=== PATIENT | female | born 1930 | race Caucasian/White ===

== ENCOUNTER 2017-06-09 08:47 | Inpatient (IN) ==
[2017-06-09] MEDS ORDERED: CLINDAMYCIN INJ 600 MG in PREMIX 1 EACH IV STA (09:04)
[2017-06-09] MEDS ORDERED: SODIUM CHLORIDE 0.9% 1,000 ML IV STA ×2 (09:04→11:41)
[2017-06-09] MEDS ORDERED: CALCIUM GLUCONATE 1,000 MG in SODIUM CHLORIDE 0.9% 100 ML IV ONE (09:09)
[2017-06-09] MEDS ORDERED: ALBUTEROL NEB SOLN 5 MG/ML 20 ML/BOTTLE CONT NEB STA (09:09)
--- NOTE | 2017-06-09 09:12 | Emergency Department Note ---
Arrival - Arrival Chief Complaint: Non-Specific Stated Complaint: failure to thrive ED Nursing Triage Note: pt to er 09 via ems coming from [facility] with c/o having failure to thrive. pt has K+ 5.7, fever of 99.0, poor urine output, and swelling all over. Mode of Arrival: Stretcher Limitations: No Limitations Source: Old Records Reviewed Time Seen by Provider: 06/09/17 09:04 - History of Present Illness HPI Narrative: This 86-year-old white female senior care resident who is a DNR presents on referral from the senior care for hyperkalemia of 5.7, fever, and failure to thrive. The patient herself can give no history she is very demented and only oriented to person. However, she is alert and in no acute medical distress. Onset (ago): unknown Allergies/Adverse Reactions: Allergies Allergy/AdvReac Type Severity Reaction Status Date / Time Aminoglycosides Allergy Unknown/Unable Verified 06/09/17 09:38 to obtain Cephalosporins Allergy Unknown/Unable Verified 06/09/17 09:38 to obtain Macrolide Antibiotics Allergy Unknown/Unable Verified 06/09/17 09:38 to obtain Penicillins Allergy Unknown/Unable Verified 06/09/17 09:38 to obtain Sulfa (Sulfonamide Allergy Unknown/Unable Verified 06/09/17 09:38 Antibiotics) to obtain Tetracyclines Allergy Unknown/Unable Verified 06/09/17 09:38 to obtain FLUROQUINOLONES Allergy Unknown Uncoded 05/31/17 15:47 KETOLIDES Allergy Unknown Uncoded 05/31/17 15:47 fluroquinolones Allergy Unknown/Unable Uncoded 06/09/17 09:38 to obtain ketolides Allergy Unknown/Unable Uncoded 06/09/17 09:38 to obtain Home Medications: Home Medications Medication Instructions Recorded Confirmed Type Acetaminophen 2 tablet PO Q4HR PRN 05/31/17 06/09/17 History Atorvastatin Calcium 1 tablet PO DAILY 05/31/17 06/09/17 History Bisacodyl Supp [Dulcolax Supp] 10 mg RECTAL DAILY PRN 05/31/17 06/09/17 History Bumetanide 1 mg PO 1600 05/31/17 06/09/17 History Calcium (Carb)/Vit D 600-400 1 tablet PO DAILY 05/31/17 06/09/17 History [Caltrate 600 + D] Cholecalciferol (Vitamin D3) 2,000 mg PO DAILY 05/31/17 06/09/17 History [Vitamin D3] Clopidogrel Bisulfate [Clopidogrel] 75 mg PO DAILY 05/31/17 06/09/17 History Docusate Sodium 100 mg PO BID 05/31/17 06/09/17 History Donepezil HCl 5 mg PO BEDTIME 05/31/17 06/09/17 History FLUoxetine [PROzac] 10 mg PO BEDTIME 05/31/17 06/09/17 History Ferrous Sulfate 325 mg PO BID 05/31/17 06/09/17 History HYDROcodone/ACETAMIN 5-325 [[place] 1 tablet PO Q4H PRN 05/31/17 06/09/17 History 5-325] Hydralazine HCl 50 mg PO TID 05/31/17 06/09/17 History Magnesium Chloride [Slow Mag] 64 mg PO BID 05/31/17 06/09/17 History Niacin [Niacin ER] 500 mg PO DAILY 05/31/17 06/09/17 History Nitroglycerin [Nitroglycerin SL 0.4 mg SL Q5M PRN 05/31/17 06/09/17 History Tab] Ondansetron Tab [Zofran Tab] 4 mg PO Q12HR PRN 05/31/17 06/09/17 History Potassium Chloride 20 meq PO DAILY 05/31/17 06/09/17 History Trazodone HCl 25 mg PO BEDTIME 05/31/17 06/09/17 History clonazePAM TAB [KlonoPIN] 0.25 mg PO BID 05/31/17 06/09/17 History dilTIAZem HCl [Diltiazem ER (24 240 mg PO DAILY 05/31/17 06/09/17 History hr)] Gabapentin Cap/Tab [Neurontin 100 mg PO BID 06/09/17 06/09/17 History Cap/Tab] Zaleplon 5 mg PO BEDTIME PRN 06/09/17 06/09/17 History Zinc Oxide Paste [Desitin Paste] 1 applic TOP BID 06/09/17 06/09/17 History cloNIDine TAB [Catapres Tab] 0.1 mg PO Q6H PRN 06/09/17 06/09/17 History diphenhydrAMINE CAP [Benadryl Cap] 25 mg PO Q4H PRN 06/09/17 06/09/17 History Review of System - Review of System ROS unobtainable: due to mental status Medical,Surgical,& Family Hx - Social History Smoking Status: Never smoker Frequency of Alcohol Use: None Type of Drug Use: None Exam Physical Examination: GENERAL: Well developed, well nourished elderly white female in no acute distress. HEENT: Normocephalic. No trauma. Moist mucous membranes. EOMI. PERRLA. ENT NML NECK: Supple. No adenopathy. CARDIAC: Regular. No murmurs. Heart rate 115 CHEST: Clear to auscultation. No respiratory distress. O2 sat 90% ABDOMEN: Soft. Nontender. Active bowel sounds. EXTREMITIES: No trauma. Complains of pain on range of motion the right hip. No pedal edema. SKIN: No diaphoresis. No rash. NEURO: Alert but confused. Motor, sensory, vibratory intact. No focal deficits. Vital Signs: Vital Signs Temperature 98.7 F 06/09/17 08:51 Pulse Rate 111 H 06/09/17 09:43 Respiratory Rate 20 06/09/17 09:43 Blood Pressure 130/53 06/09/17 08:51 O2 Sat by Pulse Oximetry 98 06/09/17 09:43 Course - Reevaluation(s) Reevaluation #1: Advise family of her dehydrated state and need for rehydration overnight - Consultations Consultation #1: Discussed with the hospitalist service who will admit for further evaluation treatment. Results - Labs CBC & BMP: 06/09/17 10:25 06/09/17 10:25 - Impressions EKG: Paced at 97 with normal QRS duration. Right ventricular hypertrophy with old anterolateral infarct and evidence of persistent ST depression consistent with acute ischemia. - Diagnostic Findings Procedure: Chest x-ray: image reviewed by me, report reviewed by me (Increased markings otherwise unremarkable) Disposition Clinical Impression: Renal azotemia Case discussed with: patient's family Disposition: Still a Patient Condition: Guarded Time of Disposition: 12:15
--- NOTE | 2017-06-09 09:35 | XRay Report ---
XR chest 1V portable Indication: Shortness of breath, fever Comparison: None available Findings: The heart and mediastinum are stable in size and configuration. The pulmonary vascularity is slightly increased with bilateral increased interstitial lung density. No other lung infiltrates, effusions, pneumothorax or other abnormality is demonstrated. Impression: Findings suggest mild cardiac decompensation. PROCEDURE INTERPRETED AT [facility] DEPARTMENT OF RADIOLOGY Final Report Signed by: Dr. Kevin Mejía
--- NOTE | 2017-06-09 09:37 | XRay Report ---
XR hip 2v w pelvis RT Indication: Hip pain Comparison: None available Findings: No evidence of fracture seen. The alignment of the joints appears normal. Mild hip degenerative change is present. Degenerative changes are present in the lower lumbar spine. No soft tissue abnormality is seen. Impression: Mild hip osteoarthrosis. PROCEDURE INTERPRETED AT [facility] DEPARTMENT OF RADIOLOGY Final Report Signed by: Dr. Kevin Mejía
[2017-06-09 09:42] LABS: Amorphous Crystals,Urine Occasional /HPF (Few); Apearance,Urine Slightly Hazy (Clear); Bilirubin,Urine Negative (Negative); Blood, Urine Negative (Negative); Glucose,Urine (UA) Negative (Negative); Hyaline Casts,Urine 4 /LPF (0-3); Ketones,Urine Negative (Negative); Mucus,Urine Occasional /LPF (Occasional); Nitrite,Urine Negative (Negative); Protein,Urine 100 MG/DL; RBC,Urine 8 /HPF (0-4); Urine Color Yellow (Yellow); Urine Specific Gravity 1.014 (1.001-1.035); Urine Urobilinogen < 2.0 EU/DL (0.2-1.0); WBC,Urine 1 /HPF (0-6)
--- NOTE | 2017-06-09 09:51 | EKG Report ---
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
[2017-06-09 10:37] LABS: Basophils % 0.2 % (0.0-0.8); Eosinophils # 0.3 10*3/uL (0.0-0.87); Eosinophils % 3.2 % (0.00-10.9); Hematocrit 29.3 VOL% (35.7-47.0); Hemoglobin 8.7 GM/DL (12.0-16.0); Immature Granulocytes % 0.7 %; Immature Granulocytes Absolute 0.06 #; Lymphocytes # 1.8 10*3/uL (1.4-4.0); Lymphocytes % 19.4 % (21.3-54.2); Mean Corpuscular HGB Conc 29.7 GM/DL (32-36); Mean Corpuscular Hemoglobin 30 PG (27-34); Mean Corpuscular Volume 101.4 FL (87-102); Mean Platelet Volume 9.5 FL (9.6-12.0); Monocytes # 0.9 10*3/uL (0.11-0.8); Monocytes % 10.1 % (1.7-12.7); Neutrophils % 66.4 % (38.7-73.9); Platelet Count 201 T/CUMM (130-400); Red Blood Count 2.89 MC/CUMM (3.8-5.5); Red Cell Distribution Width 16.2 % (9.3-17.3)
[2017-06-09 10:46] LABS: INR 1.1; PT Patient Result 11.4 SECS
[2017-06-09] MEDS ORDERED: CLINDAMYCIN INJ 50 ML IV ONE (11:15)
[2017-06-09 11:24] LABS: Albumin 3.4 G/DL (3.4-5.0); Bilirubin,Total 0.6 MG/DL (0.2-1.0); CKMB % 1.4 %; Calcium 9.3 MG/DL (8.5-10.1); Osmolality,Calculated 287.7 MOS/KG (273-304); Potassium 5.8 MMOL/L (3.5-5.1); Total Protein 6.6 G/DL (6.4-8.3); Troponin I Only 0.025 NG/ML (0.00-0.045)
--- NOTE | 2017-06-09 15:30 | Hospitalist History & Physical ---
Assessment and Plan (1) Hyperkalemia Status: Acute Assessment and plan: K 5.8. [place] ordered. Recheck in am. Current Visit: Yes (2) A-fib Status: Acute Assessment and plan: Cardiac monitoring. Restart home meds. Anticoagulate. Current Visit: No (3) Hypertension Status: Acute Assessment and plan: Restart home meds. Pt. stable at current. Current Visit: No (4) Major depression Status: Acute Current Visit: No (5) Renal failure Status: Acute Assessment and plan: Pt. only has one kidney per daughter. She is at her baseline. Avoid nephrotoxic agents. Daily bmps. Current Visit: Yes History of Present Illness Chief complaint: hyperkalemia/fever History of present illness: Ms. Patiño is a 86 year old white female with a history of GERD, hypertension, afib, anemia, dementia, osteoarthritis, depression and anxiety presented to the ED via EMS from a [facility] for further evaluation of hyperkalemia and fever. Patient has dementia and is only oriented to self and was therefore unable to provide any history. Patient's daughter is present at the bedside. She states she was notified by the [facility] facility that patient has elevated potassium. Pt.'s daughter reported that the patient has had a steady decline since her hip fracture in Apr 2016. Pt. was evaluated in the ED. CXR showed mild cardiac decompensation. Remarkable labs reveal K of 5.8, bun/creatinine 42/ 3 respectively, and ck mb of 9.5. Pt's case has been discussed with Dr. Rodrigues and ER physician. Pt. will be admitted to our service. Home Medications Medication Instructions Recorded Confirmed Type Acetaminophen 2 tablet PO Q4HR PRN 05/31/17 06/09/17 History Atorvastatin Calcium 1 tablet PO DAILY 05/31/17 06/09/17 History Bisacodyl Supp [Dulcolax Supp] 10 mg RECTAL DAILY PRN 05/31/17 06/09/17 History Bumetanide 1 mg PO 1600 05/31/17 06/09/17 History Calcium (Carb)/Vit D 600-400 1 tablet PO DAILY 05/31/17 06/09/17 History [Caltrate 600 + D] Cholecalciferol (Vitamin D3) 2,000 mg PO DAILY 05/31/17 06/09/17 History [Vitamin D3] Clopidogrel Bisulfate [Clopidogrel] 75 mg PO DAILY 05/31/17 06/09/17 History Docusate Sodium 100 mg PO BID 05/31/17 06/09/17 History Donepezil HCl 5 mg PO BEDTIME 05/31/17 06/09/17 History FLUoxetine [PROzac] 10 mg PO BEDTIME 05/31/17 06/09/17 History Ferrous Sulfate 325 mg PO BID 05/31/17 06/09/17 History HYDROcodone/ACETAMIN 5-325 [[place] 1 tablet PO Q4H PRN 05/31/17 06/09/17 History 5-325] Hydralazine HCl 50 mg PO TID 05/31/17 06/09/17 History Magnesium Chloride [Slow Mag] 64 mg PO BID 05/31/17 06/09/17 History Niacin [Niacin ER] 500 mg PO DAILY 05/31/17 06/09/17 History Nitroglycerin [Nitroglycerin SL 0.4 mg SL Q5M PRN 05/31/17 06/09/17 History Tab] Ondansetron Tab [Zofran Tab] 4 mg PO Q12HR PRN 05/31/17 06/09/17 History Potassium Chloride 20 meq PO DAILY 05/31/17 06/09/17 History Trazodone HCl 25 mg PO BEDTIME 05/31/17 06/09/17 History clonazePAM TAB [KlonoPIN] 0.25 mg PO BID 05/31/17 06/09/17 History dilTIAZem HCl [Diltiazem ER (24 240 mg PO DAILY 05/31/17 06/09/17 History hr)] Gabapentin Cap/Tab [Neurontin 100 mg PO BID 06/09/17 06/09/17 History Cap/Tab] Zaleplon 5 mg PO BEDTIME PRN 06/09/17 06/09/17 History Zinc Oxide Paste [Desitin Paste] 1 applic TOP BID 06/09/17 06/09/17 History cloNIDine TAB [Catapres Tab] 0.1 mg PO Q6H PRN 06/09/17 06/09/17 History diphenhydrAMINE CAP [Benadryl Cap] 25 mg PO Q4H PRN 06/09/17 06/09/17 History Allergies Allergy/AdvReac Type Severity Reaction Status Date / Time Aminoglycosides Allergy Unknown/Unable Verified 06/09/17 09:38 to obtain Cephalosporins Allergy Unknown/Unable Verified 06/09/17 09:38 to obtain Macrolide Antibiotics Allergy Unknown/Unable Verified 06/09/17 09:38 to obtain Penicillins Allergy Unknown/Unable Verified 06/09/17 09:38 to obtain Sulfa (Sulfonamide Allergy Unknown/Unable Verified 06/09/17 09:38 Antibiotics) to obtain Tetracyclines Allergy Unknown/Unable Verified 06/09/17 09:38 to obtain FLUROQUINOLONES Allergy Unknown Uncoded 05/31/17 15:47 KETOLIDES Allergy Unknown Uncoded 05/31/17 15:47 fluroquinolones Allergy Unknown/Unable Uncoded 06/09/17 09:38 to obtain ketolides Allergy Unknown/Unable Uncoded 06/09/17 09:38 to obtain Medical,Surgical,& Family Hx - Medical History Cardio: History of: Cardiac Dysrhythmia (Atrial fibrillation), Hypertension, Cardiovascular Problems (ATRIAL FIB.) Psychological: History of: Anxiety Disorders, Behavior Problems, Depression Neurology: History of: Dementia Gastrointestinal: History of: GERD Musculoskeletal: History of: Musculoskeletal Problems (OSTEOARTHRITIS) Hematology: History of: Anemia Other: History of: Skin Problems (THE PT'S PICKS AT HER SKIN & CAUSES IT TO BLEED.) - Surgical History Orthopedic Surgeries: Surgical HX of;: Orthopedic Surgery (History of left hip fracture) - Family History Family History: Reports;: Family Heart Disease - Social History Smoking Status: Never smoker Frequency of Alcohol Use: None Type of Drug Use: None Marital Status: Single 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 Absent: wheezes - Cardiovascular Cardiovascular exam: Absent: irregular rhythm - GI/Abdominal GI/Abdominal exam: Present: normal bowel sounds, soft. Absent: tenderness - Extremities Exam Extremities exam: Present: normal inspection, normal capillary refill - Neurological Exam Neurological exam: Present: alert, oriented X3 - Psychiatric Psychiatric exam: Present: normal affect, normal mood - Skin Skin exam: Present: normal color, warm, dry Results - Labs CBC & BMP: 06/09/17 10:25 06/09/17 10:25 Lab Results: I have reviewed the past 24 hour labs
[2017-06-09] MEDS ORDERED: SODIUM POLYSTYRENE SULFATE 15 GM/60 ML BOTTLE RECTAL ONE (16:59)
[2017-06-09] MEDS: SODIUM BICARB INJ 50 MEQ in SODIUM CHLORIDE 0.45% 1,000 ML IV SCH (18:41)
[2017-06-09] MEDS ORDERED: ACETAMINOPHEN 325 MG TABLET PO PRN (19:01)
[2017-06-09] MEDS: DOCUSATE SODIUM 100 MG CAPSULE PO SCH (20:29)
[2017-06-09] MEDS: DONEPEZIL 5 MG TABLET PO SCH (20:29)
[2017-06-09] MEDS: ZIPRASIDONE 20 MG/1 ML VIAL IM PRN (22:42)
[2017-06-10] MEDS ORDERED: METOPROLOL TARTRATE 5 MG/5 ML VIAL IV ONE (00:36)
[2017-06-10] MEDS: ZIPRASIDONE 20 MG/1 ML VIAL IM PRN (04:17)
[2017-06-10 05:55] LABS: Calcium 8.6 MG/DL (8.5-10.1); Osmolality,Calculated 290.3 MOS/KG (273-304); Potassium 4.9 MMOL/L (3.5-5.1)
[2017-06-10] MEDS: DILTIAZEM CD 240 MG CAPSULE PO SCH (09:07)
[2017-06-10] MEDS: DOCUSATE SODIUM 100 MG CAPSULE PO SCH ×2 (09:08→20:41)
[2017-06-10] MEDS: CLOPIDOGREL 75 MG TABLET PO SCH (09:08)
[2017-06-10] MEDS: ONDANSETRON 4 MG/2 ML VIAL IV PRN (11:52)
[2017-06-10] MEDS: SODIUM BICARB INJ 50 MEQ in SODIUM CHLORIDE 0.45% 1,000 ML IV SCH ×2 (13:47→19:47)
[2017-06-10] MEDS: ZINC OXIDE PASTE 113 GM TUBE TOP SCH ×2 (18:10→20:41)
[2017-06-10] MEDS: DONEPEZIL 5 MG TABLET PO SCH (20:41)
[2017-06-10] MEDS: CYPROHEPTADINE 4 MG TABLET PO SCH (20:41)
--- NOTE | 2017-06-10 21:00 | Hospitalist Progress Note ---
Hospitalist: Subjective Interval history: 86 yo F with hyperkalemia and renal failure. She is awake and comfortable. Exam - Constitutional Vitals: Period Temp Pulse Resp BP Sys/Sellers Pulse Ox Last 24 Hr 97.2 F-98 F 100-141 18-21 116-145/58-91 91-96 General appearance: no acute distress - Head Head exam: Present: normal inspection - Eye Eye exam: Present: EOMI - ENT ENT exam: Present: normal exam - Respiratory Respiratory exam: Present: clear to auscultation bilaterally - Cardiovascular Cardiovascular exam: Present: regular rate and rhythm - GI/Abdominal GI/Abdominal exam: Present: normal bowel sounds, soft - Neurological Exam Neurological exam: Present: alert, oriented X3 - Psychiatric Psychiatric exam: Present: normal affect, normal mood Results - Labs CBC & BMP: 06/09/17 10:25 06/10/17 04:57 - Impressions Assessment and Plan: (1) Hyperkalemia Status: Acute Assessment and plan: This is better with treatment, monitor Current Visit: Yes (2) Paroxysmal A-fib Status: Chronic Assessment and plan: Stable Current Visit: No (3) Hypertension, Ess Status: Chronic Assessment and plan: Controlled Current Visit: No (4) Major depression Status: Acute Current Visit: No (5) ASHLEY on CKD-III Status: Acute Assessment and plan: Pt. only has one kidney. Cr is better with gentle IV hydration Current Visit: Yes
[2017-06-11 04:44] LABS: Calcium 8.5 MG/DL (8.5-10.1); Osmolality,Calculated 286.4 MOS/KG (273-304); Potassium 4.5 MMOL/L (3.5-5.1)
--- NOTE | 2017-06-11 08:18 | Hospitalist Progress Note ---
Assessment and Plan (1) Acute on chronic renal failure Status: Acute Assessment and plan: Her BUN and creatinine were 42 and 3.0 respectively on admission 06/09/17. They have decreased to 37 and 2.2 respectively today. I will continue sodium chloride 0.9% intravenous infusion. Current Visit: Yes Qualifiers: Acute renal failure type: unspecified Chronic kidney disease stage: unspecified stage Qualified Code(s): N17.9 - Acute kidney failure, unspecified ; N18.9 - Chronic kidney disease, unspecified (2) Acute on chronic renal failure Status: Acute Current Visit: Yes (3) Hyperkalemia Status: Acute Assessment and plan: Her potassium was 5.8 on admission 06/09/17. It is decreased to 4.5 today. Current Visit: Yes (4) Dementia with behavioral disturbance Status: Acute Current Visit: No Qualifiers: Dementia type: Alzheimer's disease Alzheimer's disease onset: late-onset Qualified Code(s): G30.1 - Alzheimer's disease with late onset; F02.81 - Dementia in other diseases classified elsewhere with behavioral disturbance Hospitalist: Subjective Interval history: She remains uncommunicative. Her daughter states that she passed an uneventful night. Exam - Constitutional Vitals: Period Temp Pulse Resp BP Sys/Sellers Pulse Ox Last 24 Hr 97.4 F-98.1 F 91-127 18-22 145-169/71-91 91-95 General appearance: no acute distress - Head Head exam: Present: normal inspection - Neck Neck exam: Present: normal inspection - Respiratory Respiratory exam: Present: clear to auscultation bilaterally - Cardiovascular Cardiovascular exam: Present: regular rate and rhythm - GI/Abdominal GI/Abdominal exam: Present: normal bowel sounds, soft, other (Nontender with no palpable masses or hepatosplenomegaly.) - Extremities Exam Extremities exam: Present: normal inspection - Skin Skin exam: Present: normal color, warm, intact Results - Labs CBC & BMP: 06/09/17 10:25 06/11/17 03:25
[2017-06-11] MEDS: DILTIAZEM CD 240 MG CAPSULE PO SCH (09:45)
[2017-06-11] MEDS: DOCUSATE SODIUM 100 MG CAPSULE PO SCH ×2 (09:46→20:50)
[2017-06-11] MEDS: CLOPIDOGREL 75 MG TABLET PO SCH (09:46)
[2017-06-11] MEDS: CYPROHEPTADINE 4 MG TABLET PO SCH ×3 (09:46→20:50)
[2017-06-11] MEDS: SODIUM BICARB INJ 50 MEQ in SODIUM CHLORIDE 0.45% 1,000 ML IV SCH (09:46)
[2017-06-11] MEDS: ZINC OXIDE PASTE 113 GM TUBE TOP SCH ×2 (09:46→20:50)
[2017-06-11] MEDS: DONEPEZIL 5 MG TABLET PO SCH (20:50)
[2017-06-12] MEDS: SODIUM BICARB INJ 50 MEQ in SODIUM CHLORIDE 0.45% 1,000 ML IV SCH ×2 (00:34→14:05)
[2017-06-12 05:26] LABS: Calcium 8.3 MG/DL (8.5-10.1); Osmolality,Calculated 286.3 MOS/KG (273-304)
--- NOTE | 2017-06-12 08:45 | Hospitalist Progress Note ---
Assessment and Plan (1) Acute on chronic renal failure Status: Acute Assessment and plan: Her BUN and creatinine were 42 and 3.0 respectively on admission 06/09/17. They have decreased to 32 and 1.8 respectively today. I will continue sodium chloride 0.9% intravenous infusion. She will probably be ready for discharge tomorrow. Current Visit: Yes Qualifiers: Acute renal failure type: unspecified Chronic kidney disease stage: unspecified stage Qualified Code(s): N17.9 - Acute kidney failure, unspecified ; N18.9 - Chronic kidney disease, unspecified (2) Acute on chronic renal failure Status: Acute Current Visit: Yes (3) Hyperkalemia Status: Acute Assessment and plan: Her potassium was 5.8 on admission 06/09/17. It is decreased to 4.0 today. Current Visit: Yes (4) Dementia with behavioral disturbance Status: Acute Current Visit: No Qualifiers: Dementia type: Alzheimer's disease Alzheimer's disease onset: late-onset Qualified Code(s): G30.1 - Alzheimer's disease with late onset; F02.81 - Dementia in other diseases classified elsewhere with behavioral disturbance Hospitalist: Subjective Interval history: She remains essentially noncommunicative. She remains in the hospital because of acute on chronic renal failure. She continues to be treated with intravenous sodium chloride 0.9% infusion. Her BUN and creatinine were 37 and 2.2 respectively yesterday. They have decreased to 32 and 1.8 respectively today. I will continue the intravenous infusion. Exam - Constitutional Vitals: Period Temp Pulse Resp BP Sys/Sellers Pulse Ox Last 24 Hr 97.0 F-98.2 F 86-125 14-22 124-158/73-95 91-97 General appearance: no acute distress - Head Head exam: Present: normal inspection - Neck Neck exam: Present: normal inspection - Respiratory Respiratory exam: Present: clear to auscultation bilaterally - Cardiovascular Cardiovascular exam: Present: regular rate and rhythm - GI/Abdominal GI/Abdominal exam: Present: normal bowel sounds, soft, other (Nontender with no palpable mass or hepatosplenomegaly.) - Extremities Exam Extremities exam: Present: normal inspection - Skin Skin exam: Present: normal color, warm, intact Results - Labs CBC & BMP: 06/09/17 10:25 06/12/17 03:26
[2017-06-12] MEDS: CLOPIDOGREL 75 MG TABLET PO SCH (10:01)
[2017-06-12] MEDS: CYPROHEPTADINE 4 MG TABLET PO SCH ×3 (10:01→20:49)
[2017-06-12] MEDS: DOCUSATE SODIUM 100 MG CAPSULE PO SCH ×2 (10:01→20:50)
[2017-06-12] MEDS: DILTIAZEM CD 240 MG CAPSULE PO SCH (10:01)
[2017-06-12] MEDS: ZINC OXIDE PASTE 113 GM TUBE TOP SCH ×2 (10:02→20:54)
[2017-06-12] MEDS: ONDANSETRON 4 MG/2 ML VIAL IV PRN (10:42)
[2017-06-12] MEDS: ZIPRASIDONE 20 MG/1 ML VIAL IM PRN (13:27)
[2017-06-12] MEDS: DONEPEZIL 5 MG TABLET PO SCH (20:49)
[2017-06-13] MEDS: SODIUM BICARB INJ 50 MEQ in SODIUM CHLORIDE 0.45% 1,000 ML IV SCH (03:44)
[2017-06-13 07:47] LABS: Calcium 8.3 MG/DL (8.5-10.1); Osmolality,Calculated 284.4 MOS/KG (273-304); Potassium 3.8 MMOL/L (3.5-5.1)
[2017-06-13] MEDS: ZINC OXIDE PASTE 113 GM TUBE TOP SCH (10:05)
[2017-06-13] MEDS: CLOPIDOGREL 75 MG TABLET PO SCH (10:05)
[2017-06-13] MEDS: ONDANSETRON 4 MG/2 ML VIAL IV PRN (10:05)
[2017-06-13] MEDS: CYPROHEPTADINE 4 MG TABLET PO SCH (10:05)
[2017-06-13] MEDS: DILTIAZEM CD 240 MG CAPSULE PO SCH (10:05)
[2017-06-13] MEDS: DOCUSATE SODIUM 100 MG CAPSULE PO SCH (10:05)
--- NOTE | 2017-06-13 11:00 | Discharge Summary ---
Hospital Course - Hospital Course Hospital Course: 86 year old white female with a history of GERD, hypertension, afib, anemia, Alzheimer's dementia, osteoarthritis, depression and anxiety presented to the ED via EMS from [facility] for further evaluation of hyperkalemia and renal failure. Patient has severe dementia and is only oriented to self . Pt.'s daughter reported that the patient has had a steady decline since her hip fracture in Apr 2016. Pt. was evaluated in the ED and was found to have hyperkalemia of 5.8, acute renal failure on chronic kidney disease III with bun/ creatinine 42/3 respectively, and ck mb of 9.5. Patient was admitted to the hospital service on the floor and started on IV fluid with sodium bicarbonate. She was at potassium supplements on residential which would not resume. With this treatment her hyperkalemia resolved and her BUN and creatinine improved to her baseline. She had, chronic pain from multiple previous back and hip surgeries and was getting [place] as needed. She also had Periactin started because of her limited appetite, she is eating better now. She has reached maximal hospital benefit and is being discharged back to residential today. Total discharge time 35 minutes. - Time spent with patient Time with patient DS: Greater than 30 minutes Diagnosis - Discharge Diagnosis (1) Hyperkalemia Status: Resolved (2) Acute on chronic renal failure Status: Resolved Discharge Plan - Discharge Data Disposition: Disch/Xfer to Snf Condition at Discharge: Stable Discharge Diet: advance to your usual diet Activity: resume usual activities as tolerated - Discharge Medications New HYDROcodone/ACETAMIN 7.5-325 [[place] 7.5-325] 1 tablet PO Q4H PRN #30 tablet PRN Reason: Pain Moderate (4-7) Sodium Bicarb Tab 650 mg PO BID #60 tablet Continue diphenhydrAMINE CAP [Benadryl Cap] 25 mg PO Q4H PRN PRN Reason: Allergy Symptoms Gabapentin Cap/Tab [Neurontin Cap/Tab] 100 mg PO BID Zaleplon 5 mg PO BEDTIME PRN PRN Reason: Insomnia cloNIDine TAB [Catapres Tab] 0.1 mg PO Q6H PRN PRN Reason: Blood Pressure-Increased Zinc Oxide Paste [Desitin Paste] 1 applic TOP BID Bisacodyl Supp [Dulcolax Supp] 10 mg RECTAL DAILY PRN PRN Reason: Constipation Ondansetron Tab [Zofran Tab] 4 mg PO Q12HR PRN PRN Reason: Nausea Magnesium Chloride [Slow Mag] 64 mg PO BID clonazePAM TAB [KlonoPIN] 0.25 mg PO BID@,16 Docusate Sodium 100 mg PO BID Cholecalciferol (Vitamin D3) [Vitamin D3] 2,000 mg PO DAILY Trazodone HCl 25 mg PO BEDTIME dilTIAZem HCl [Diltiazem ER (24 hr)] 240 mg PO DAILY Calcium (Carb)/Vit D 600-400 [Caltr[place] 600 + D] 1 tablet PO DAILY Niacin [Niacin ER] 500 mg PO DAILY Clopidogrel Bisulfate [Clopidogrel] 75 mg PO DAILY Atorvastatin Calcium 1 tablet PO DAILY Acetaminophen 650 mg PO Q4HR PRN PRN Reason: FEVER >100 Nitroglycerin [Nitroglycerin SL Tab] 0.4 mg SL Q5M PRN PRN Reason: Chest Pain Hydralazine HCl 50 mg PO TID FLUoxetine [PROzac] 10 mg PO BEDTIME Donepezil HCl 5 mg PO BEDTIME Ferrous Sulfate 325 mg PO BID Discontinued HYDROcodone/ACETAMIN 5-325 [[place] 5-325] 1 tablet PO Q4H PRN PRN Reason: Pain Bumetanide 1 mg PO 1600 Potassium Chloride 20 meq PO DAILY - Follow Up or Referral - Forms/Instructions Exam - Constitutional Vitals: Period Temp Pulse Resp BP Sys/Sellers Pulse Ox Last 24 Hr 97.1 F-98.7 F 74-117 18-22 109-150/67-98 90-97 Exam: General: [No Acute Distress] HEENT: [Normocephalic, atraumatic, Extra ocular movements intact] Neck: [Supple, No JVD] Chest: [Clear to auscultation B/L] CV: [S1 + S2 audible without murmur, gallop or rub] Abd: [soft, NT, Non-distended, BS +] Ext: [No edema] Skin: [No purpura, bruising or rash] Rheumatologic: [No Joint deformities] Neurologic: [Awake and alert] Discharge Results Procedures and tests throughout hospitalization: Pending Orders 06/09/17 10:36 Blood Culture Stat 06/14/17 04:00 BMP [Basic Metabolic Panel] IN AM 06/15/17 04:00 BMP [Basic Metabolic Panel] IN AM Labs on day of discharge: Labs from last 24 hours 06/13/17 04:29 Sodium 140 Potassium 3.8 Chloride 107 Carbon Dioxide 24 Anion Gap 12.8 BUN 28 H Creatinine 1.80 H GFR Calculation 25 BUN/Creatinine Ratio 15.00 Glucose 103 Calculated Osmolality 284.4 Calcium 8.3 L Preliminary micro results at discharge 06/09/17 10:36 Blood Culture - Preliminary Blood No growth at 3 days 06/09/17 10:25 Blood Culture - Preliminary Blood No growth at 3 days DS: Provider Date of admission: 06/09/17 13:05 Primary care physician: . No PCP Attending physician on admission: Oscar Rodrigues MD Consults: 06/12/17 08:46 Consult to Case Mgmt/Social Srvs [CONS] Routine Reason for Case Mgmt/Social Srvs: Discharge Planning Consult Comment: Discharge on Tuesday06/13/17 Discharging clinician: Oscar Rodrigues MD
[2017-06-13 12:52] VITALS: BP 168/88
[2017-06-13] MEDS ORDERED: SODIUM BICARBONATE 650 MG TABLET PO SCH (21:00)
== END 2017-06-13 13:21 | DRG 683 ==
LOC: N.ED 08:47 → N.EDINP 13:05 → SUATTDRO 13:05 → N.2E 16:55
PROVIDERS: ADMIT Hospitalist; ATTEND Hospitalist